=== PATIENT | female | born 1985 | race Caucasian/White ===

== ENCOUNTER → 2019-05-18 | Outpatient (CLI) | payer OTHER ==
[~2019-05-18] MED LIST: IOHEXOL 240 MG/ML 50ML VIAL. PO ONE; IOHEXOL 300 MG/ML 75 ML VIAL. IV ONE
--- NOTE | 2019-05-18 15:59 | RAD ---
CT ABD PELV W/ORAL IV CONTRAST Indication: Abdominal pain, hernia Technique: Postcontrast CT imaging was performed of the abdomen pelvis, multiplanar reconstruction images submitted. Oral contrast was also given. One or more of the following individualized dose reduction techniques were utilized for this examination: 1. Automated exposure control 2. Adjustment of the mA and/or kV according to patient size 3. Use of iterative reconstruction technique. Comparison: None Findings: There is some motion degradation. There is no significant abnormality of the limited visualized lung bases. No focal abnormality is identified of the liver, spleen, pancreas. There has been cholecystectomy. Both kidneys enhance, no hydronephrosis. There is a small 0.2 cm left renal calculus near the midpole, likely small 0.1 cm calculus superiorly. There is focus of exophytic density along the inferior left kidney with density characteristics suggestive of cyst about 13 Hounsfield units, measuring 2.3 cm transverse. Evaluation of the colon is limited as not opacified with oral contrast during exam. There is moderate diverticulosis of the sigmoid colon greatest of the mid and proximal segments. There is no significant inflammatory type change about the bowel. Normal appendix is visualized. There is a hypodense lesion of the right adnexa about 3.7 cm AP by 2.8 cm transverse with internal density measurements of a cyst about 9 Hounsfield units. No bowel containing hernia is identified. There is no adrenal nodularity. There are some phleboliths in the left pelvis, difficult to confidently identify the distal left ureter on this exam, no significant ureteral dilatation. IMPRESSION: 1. There are a couple of small obstructive left renal calculi, no hydronephrosis. Nondilated distal left ureter in the pelvis is difficult to visualize in its entirety. There is exophytic inferior left renal cyst. 2. There is a hypodense right adnexal lesion most likely a cyst. 3. There is sigmoid diverticulosis, no convincing evidence of diverticulitis. Electronically signed by: Alfonso Varela MD (05/18/2019 3:56 PM) [id number]
== END | disposition home or self-care (01) ==
LOC: CT 10:24 → EEVIPCON 11:30
PROVIDERS: ATTEND Preventive Medicine Occupational Medicine
DX: N20.0 Calculus of kidney (principal); K57.30 Diverticulosis of large intestine without perforation or abscess without bleeding; I87.8 Other specified disorders of veins; K46.9 Unspecified abdominal hernia without obstruction or gangrene
CPT/HCPCS: 74177; Q9966; Q9967

== ENCOUNTER → 2020-02-28 | Outpatient (CLI) | payer OTHER ==
[~2020-02-28] MED LIST changes: +ATOR20TA58 PO; +BISA5TAB4 PO; +GEMF600T8 PO; +INDO25CA21 PO; +LEVO25TA4 PO; +OMEP20CA16 PO; +PNV1TABL78 PO; +SENN8.8S5 PO; +SUMA100T4 PO; +TOPI200T6 PO
--- NOTE | 2020-02-28 09:24 | RAD ---
INDICATION: Reason: RUQ PAIN, N/V, NO APPETITE, ABNORMAL US - S/P CHOLECYSTECTOMY / Spl. Instructions: / History: COMPARISON: May 2019 TECHNIQUE: Axial CT images obtained through the abdomen and pelvis with contrast. One or more of the following individualized dose reduction techniques were utilized for this examination: 1. Automated exposure control; 2. Adjustment of the mA and/or kV according to patient size; 3. Use of iterative reconstruction technique. FINDINGS: Abdominal aorta is not aneurysmal. No intrahepatic bile duct dilation. Surgical clips in the gallbladder fossa which can be seen with post cholecystectomy changes. There is an adjacent high density structure measuring 35 x 14 mm. No peripancreatic fluid collection. Spleen unremarkable. Kidneys enhance symmetrically. Mild prominence of right greater than left extrarenal pelvis. There is some degenerative changes the spine. IMPRESSION: * Cholecystectomy clips are seen in the right upper quadrant of the abdomen. Adjacent to the cholecystectomy clips there is a high density tubular structure seen with a more central lower density component measuring up to approximately 12 mm. One possible cause would include a cystic duct stump which is distended with either contrast or calcifications. The more central unopacified component could be from debris or narrowing within the region. Overall this appears similar to prior. Electronically signed by: Jaleel Hinojosa MD (02/28/2020 9:21 AM) [id number]
== END ==
LOC: CT 08:12
PROVIDERS: ATTEND Preventive Medicine Occupational Medicine
DX: R10.11 Right upper quadrant pain (principal); Z90.49 Acquired absence of other specified parts of digestive tract
CPT/HCPCS: 74160; Q9966; Q9967